=== PATIENT | female | born 1950 | race Caucasian/White ===

== ENCOUNTER 2023-01-07 13:32 | Emergency (ER) | payer MEDICAID, OTHER ==
[~2023-01-07] VITALS: Ht 160 cm; Wt 54.4 kg
[~2023-01-07 13:32] MED LIST: CHOLESTEROL MED; GERD MED; HTN MED
--- NOTE | 2023-01-07 13:40 | NUR ---
RECEIVED PT FROM [facility]. PT BIBA WITH C/O SCIATICA PAIN. PT IS AAOX4. ON R/A. NORMAL S1S2 NOTED. DENIES N/V/D/C. DISTAL PULSES NORMAL. SKIN WARM, CDI. SIDERAILS UP X2.
[2023-01-07 13:56] VITALS: BP_SYST 142
[2023-01-07] MEDS ORDERED: KETOROLAC TROMETHAMINE 30 MG VIAL IM ONE (14:30)
[2023-01-07] MEDS ORDERED: DIAZEPAM 5 MG TABLET (VALIUM) PO ONE (14:30)
--- NOTE | 2023-01-07 14:30 | NUR ---
DR. MELARA AT BEDSIDE TO ASSESS PT.
--- NOTE | 2023-01-07 14:51 | NUR ---
TORADOL 30MG IM GIVEN TO LEFT DELTOID. VALIUM 2MG PO GIVEN AND TOLERATED WELL. PT REPOSITIONED FOR COMFORT.
[2023-01-07] MEDS ORDERED: DICL20GE TP (16:19)
--- NOTE | 2023-01-07 16:40 | NUR ---
DR. MELARA AT BEDSIDE TO DISCUSS POC.
[2023-01-07 17:19] VITALS: BP_SYST 132
--- NOTE | 2023-01-07 17:26 | NUR ---
Patient given written and verbal discharge instructions and verbalizes understanding. ER MD discussed with patient the results and treatment provided. Patient in stable condition. ID arm band removed. Rx of VOLTAREN given. Patient educated on pain management and to follow up with PMD. Pain Scale 0/10. Opportunity for questions provided and answered. Medication side effect fact sheet provided. PT TAKEN TO CAR BY W/C ASSISTED BY EMT.
== END 2023-01-07 17:26 | disposition home or self-care (01) ==
LOC: SED 13:32
DX: M16.11 Unilateral primary osteoarthritis, right hip (principal); M47.898 Other spondylosis, sacral and sacrococcygeal region; K21.9 Gastro-esophageal reflux disease without esophagitis; I10 Essential (primary) hypertension; Z88.2 Allergy status to sulfonamides; Z88.6 Allergy status to analgesic agent
CPT/HCPCS: 99284; 72100; 72170; 73502; 96372; J1885

== ENCOUNTER 2023-09-23 12:46 | Emergency (ER) | payer OTHER ==
[~2023-09-23] VITALS: Ht 154.9 cm; Wt 57.2 kg
[~2023-09-23 12:46] MED LIST changes: +DICL20GE TP
[2023-09-23 12:50] VITALS: BP_SYST 147; PULSE 95; RESP 19; TEMP 97.2; O2SAT 99
[2023-09-23 14:27] LABS: BASOPHILS # (AUTO) 0.1 K/uL (0.0-0.2); BASOPHILS % (AUTO) 0.7 % (0.0-2.0); EOSINOPHILS # (AUTO) 0.1 K/uL (0.0-0.4); EOSINOPHILS % (AUTO) 0.8 % (0.0-4.0); HEMATOCRIT 38.7 % (36-48); HEMOGLOBIN 12.4 g/dL (12.0-16.0); LYMPHOCYTES # (AUTO) 1.8 K/uL (1.0-5.5); LYMPHOCYTES % (AUTO) 20.1 % (20.5-51.5); MEAN CORPUSCULAR HEMOGLOBIN 28 pg (27-31); MEAN CORPUSCULAR HGB CONC 32 % (32-36); MEAN CORPUSCULAR VOLUME 87 fL (79.0-98.0); MONOCYTES # (AUTO) 0.7 K/uL (0.0-1.0); MONOCYTES % (AUTO) 7.7 % (1.7-9.3); NEUTROPHILS # (AUTO) 6.2 K/uL (1.8-7.7); NEUTROPHILS % (AUTO) 70.7 % (40.0-70.0); PLATELET COUNT (AUTO) 193 K/uL (130-430); RED BLOOD CELL COUNT(AUTO) 4.46 MIL/uL (4.2-6.2); RED CELL DISTRIBUTION WIDTH 16.2 % (9.0-15.0); WHITE BLOOD COUNT (AUTO) 8.8 K/uL (4.8-10.8)
[2023-09-23 14:46] LABS: ALANINE AMINOTRANSFERASE 35 U/L (12-78); ALBUMIN 3.6 g/dL (3.4-4.8); ANION GAP 5 (5-15); ASPARTATE AMINOTRANSFERASE 32 U/L (10-37); BILIRUBIN,DIRECT 0.2 mg/dL (0.0-0.3); CALCIUM 8.9 mg/dL (8.4-11.0); CARBON DIOXIDE 28 mmol/L (23-29); CHLORIDE 101 mmol/L (98-107); CREATININE 0.56 mg/dL (0.55-1.30); GLUCOSE 111 mg/dL (74-106); LIPASE 34 U/L (16-77); POTASSIUM 4.8 mmol/L (3.5-5.1); SODIUM SERUM 134 mmol/L (136-145); TOTAL BILIRUBIN 0.7 mg/dL (0.0-1.0); TOTAL PROTEIN, SERUM 7.3 g/dL (6.4-8.3); UREA NITROGEN, BLOOD 17 mg/dL (8-21)
[2023-09-23 15:32] LABS: BILIRUBIN,URINE NEGATIVE (NEGATIVE); CLARITY/URINE CLEAR (CLEAR); COLOR,URINE YELLOW (YELLOW); GLUCOSE,URINE NEGATIVE (NEGATIVE); KETONES,URINE TRACE (NEGATIVE); LEUKOCYTE ESTERASE ,URINE NEGATIVE (NEGATIVE); NITRITE, URINE NEGATIVE (NEGATIVE); PH,URINE 5.5 (5.0-8.0); PROTEIN URINE TRACE (NEGATIVE); UROBILINOGEN,URINE 0.2 (0.2-1.0)
[2023-09-23 15:41] LABS: BLOOD, URINE TRACE (NEGATIVE)
[2023-09-23 15:45] LABS: BACTERIA,URINE FEW /HPF (None Seen); WBC,URINE 0-3 /HPF (0-3)
[2023-09-23] MEDS ORDERED: ONDANSETRON 4 MG ODT TAB PO ONE (15:45)
[2023-09-23] MEDS ORDERED: PANTOPRAZOLE SODIUM 40 MG TAB PO ONE (15:45)
[2023-09-23] MEDS ORDERED: OMEPRAZOLE Non-Formulary 20 MG CAPSULE.DR PO ONE (15:45)
[2023-09-23 15:46] LABS: CALCIUM OXALATE CRYSTALS,UR 0-10 /HPF (None Seen)
[2023-09-23] MEDS ORDERED: ONDA-8 TL (16:46)
[2023-09-23] MEDS ORDERED: OMEP40CA20 PO (16:46)
[2023-09-23 16:52] VITALS: BP_SYST 138; PULSE 86; RESP 19; TEMP 98; O2SAT 96
== END 2023-09-23 16:52 | disposition home or self-care (01) ==
LOC: SED 12:46
DX: K21.9 Gastro-esophageal reflux disease without esophagitis (principal); R10.13 Epigastric pain; I10 Essential (primary) hypertension; Z88.2 Allergy status to sulfonamides; Z88.6 Allergy status to analgesic agent; Z88.8 Allergy status to other drugs, medicaments and biological substances; Z79.899 Other long term (current) drug therapy
CPT/HCPCS: 99284; 76705; 80076; 80048; 81001; 83690; 85025; 36415; 93005; Q0162; 81000; 81015